=== PATIENT | female | born 1950 | race Asian ===

== ENCOUNTER 2022-06-30 10:52 | Outpatient (CLI) | payer MEDICARE | END 2022-06-30 10:53 | disposition home or self-care (01) | LOC: CSHMAMMO 10:52 | PROVIDERS: ATTEND Internal Medicine | DX: M85.852 Other specified disorders of bone density and structure, left thigh (principal); M85.851 Other specified disorders of bone density and structure, right thigh; Z78.0 Asymptomatic menopausal state | CPT/HCPCS: 77063; 77067; 77080 ==